=== PATIENT | male | born 1955 | race Caucasian/White ===

== ENCOUNTER 2021-12-05 15:13 | Inpatient (IN) | payer BC, OTHER ==
[~2021-12-05] VITALS: Ht 177.8 cm; Wt 81.0 kg
[~2021-12-05 15:13] MED LIST: ASPI-1009 PO; BENA40TA73 PO; CARV-50 PO; CLOP75TA34 PO; GEMF600T89 PO; OMEP-84 PO
[2021-12-05 16:20] LABS: BASOPHILS # (AUTO) 0.1 X10'3 (0-0.2); BASOPHILS % (AUTO) 0.6 % (0-1); EOSINOPHILS # (AUTO) 0.1 X10'3 (0-0.9); EOSINOPHILS % (AUTO) 1.7 % (0-6); HEMATOCRIT 33.6 % (42.0-52.0); LYMPHOCYTES % (AUTO) 11.6 % (21-51); MEAN CORPUSCULAR HEMOGLOBIN 29.9 PG (27.0-31.0); MEAN CORPUSCULAR HGB CONC 32.8 g/dL (33.0-36.5); MEAN CORPUSCULAR VOLUME 91.1 FL (78-98); MONOCYTES # (AUTO) 0.8 X10'3 (0-0.9); MONOCYTES % (AUTO) 9.5 % (2-12); NEUTROPHILS # (AUTO) 6.5 X10'3 (1.8-7.7); NEUTROPHILS % (AUTO) 76.6 % (42-75); PLATELET COUNT 294 X10'3 (140-440); RED BLOOD COUNT 3.69 X10'6 (4.70-6.10); RED CELL DISTRIBUTION WIDTH 13.7 % (11.5-14.5); WHITE BLOOD COUNT 8.4 X10'3 (4.5-11.0)
[2021-12-05 16:32] LABS: ALANINE AMINOTRANSFERASE 62 U/L (12-78); ALBUMIN 3.9 G/DL (3.4-5.0); ALBUMIN/GLOBULIN RATIO 1.1 (1.1-1.5); ALKALINE PHOSPHATASE 78 IU/L (46-116); ANION GAP 10 (8-16); ASPARTATE AMINO TRANSFERASE 26 U/L (10-37); BILIRUBIN,TOTAL 0.5 MG/DL (0.1-1.0); BLOOD UREA NITROGEN 30 MG/DL (7-18); BUN/CREATININE RATIO 20.5 (5.4-32.0); CALCIUM 9.1 MG/DL (8.5-10.1); CHLORIDE 105 MMOL/L (99-107); CREATININE 1.46 MG/DL (0.60-1.10); GLUCOSE 113 MG/DL (70-104); SODIUM 141 MMOL/L (135-145); TOTAL CARBON DIOXIDE 26.2 MMOL/L (24-32); TOTAL PROTEIN 7.5 G/DL (6.4-8.2); eGFR 48 ML/MIN
[2021-12-05] MEDS ORDERED: furosemide 10 MG/1 ML 10ml inj IV ONE (16:55)
[2021-12-05] MEDS ORDERED: ISOS30TA84 PO (17:58)
[2021-12-05] MEDS ORDERED: MEMA7CAP2 PO (17:58)
[2021-12-05] MEDS ORDERED: CLOP75TA15 PO (17:58)
[2021-12-05] MEDS ORDERED: CILO50TA PO (17:58)
[2021-12-05] MEDS ORDERED: RIVA1PAT9 TOP (17:58)
[2021-12-05] MEDS ORDERED: ESCI5TAB17 PO (17:58)
[2021-12-05] MEDS ORDERED: ATOR40TA71 PO (17:59)
[2021-12-05] MEDS ORDERED: METO-384 PO (17:59)
[2021-12-05] MEDS ORDERED: BUSP5TAB3 PO (17:59)
[2021-12-05] MEDS ORDERED: PERFLUTREN PROTEIN-A MICROSPHR (Optison) 0.22 MG/ML 3ML VIAL IV PRN (18:15)
[2021-12-05] MEDS ORDERED: ondansetron/PF 4mg/2ml inj IV PRN (18:15)
[2021-12-05] MEDS ORDERED: potassium CL 10mEq/100ml bag 100 ML IV PRN (18:15)
[2021-12-05] MEDS ORDERED: albuterol 2.5 MG/3 ML nebule NEB PRN (18:15)
[2021-12-05] MEDS ORDERED: magnesium 2GM in 50ml NS 50 ML IV PRN (18:15)
[2021-12-05] MEDS ORDERED: ipratropium/albuterol 3ml nebule NEB PRN (18:15)
[2021-12-05] MEDS ORDERED: mag hydrox/Alum hydrox/simeth 30ml oral suspension PO PRN (18:15)
[2021-12-05] MEDS ORDERED: magnesium 4gm in 100ml NS 100 ML IV PRN (18:15)
[2021-12-05] MEDS ORDERED: HYDROcodone/acetaminophen 5mg/325mg tablet PO PRN (18:15)
[2021-12-05] MEDS ORDERED: HYDROcodone/acetaminophen 10/325mg tab PO PRN (18:15)
[2021-12-05] MEDS ORDERED: acetaminophen 325mg tablet PO PRN ×2 (18:15)
[2021-12-05] MEDS ORDERED: potassium Cl 20 mEq SR tablet PO PRN ×2 (18:15)
[2021-12-05] MEDS: busPIRone 5mg tablet PO SCH (20:00)
[2021-12-05] MEDS: K and/or MAG REPLACEMENT MC SCH (20:00)
[2021-12-05] MEDS: docusate sod 100mg capsule PO SCH (20:00)
[2021-12-05] MEDS ORDERED: isosorbide mononitrate 30mg tab.SR.24H PO SCH (21:00)
[2021-12-05] MEDS: metoprolol succinate 25mg (24-HOUR) SR. Tablet PO SCH (22:10)
--- NOTE | 2021-12-05 23:33 | NUR ---
called ER for report. Nurse unavailable.
--- NOTE | 2021-12-05 23:39 | NUR ---
report received. Awaiting for patient
--- NOTE | 2021-12-05 23:39 | NUR ---
report to [facility] nurse
[2021-12-06 00:02] LABS: CLARITY,URINE CLEAR (Clear); COLOR,URINE YELLOW (Yellow); GLUCOSE, URINE NEGATIVE (Neg); KETONES,URINE NEGATIVE (Neg); LEUKOCYTE ESTERASE ,URINE NEGATIVE (Neg); NITRITES, URINE NEGATIVE (Neg); OCCULT BLOOD,URINE NEGATIVE (Neg); PROTEIN,URINE NEGATIVE (Neg); UROBILINOGEN,URINE 0.2 E.U/dL (0.2-1.0)
[2021-12-06 00:12] LABS: UA COLLECTION TYPE CLN CATCH MIDSTREAM
[2021-12-06 02:00] VITALS: BP 124/57
[2021-12-06 06:00] VITALS: BP 111/67
[2021-12-06] MEDS: metoprolol succinate 25mg (24-HOUR) SR. Tablet PO SCH (07:32)
[2021-12-06] MEDS: busPIRone 5mg tablet PO SCH (07:34)
[2021-12-06] MEDS: docusate sod 100mg capsule PO SCH (07:47)
[2021-12-06 07:48] LABS: BASOPHILS % (AUTO) 0.5 % (0-1); EOSINOPHILS # (AUTO) 0.3 X10'3 (0-0.9); EOSINOPHILS % (AUTO) 4.1 % (0-6); HEMOGLOBIN 10.3 g/dl (14.0-17.9); LYMPHOCYTES # (AUTO) 1.2 X10'3 (1.1-4.8); LYMPHOCYTES % (AUTO) 17.2 % (21-51); MEAN CORPUSCULAR HEMOGLOBIN 29.9 PG (27.0-31.0); MEAN CORPUSCULAR HGB CONC 33.1 g/dL (33.0-36.5); MEAN CORPUSCULAR VOLUME 90.5 FL (78-98); MEAN PLATELET VOLUME 8.2 FL (7.4-10.4); MONOCYTES # (AUTO) 0.8 X10'3 (0-0.9); MONOCYTES % (AUTO) 11.9 % (2-12); NEUTROPHILS # (AUTO) 4.7 X10'3 (1.8-7.7); NEUTROPHILS % (AUTO) 66.3 % (42-75); PLATELET COUNT 268 X10'3 (140-440); RED BLOOD COUNT 3.43 X10'6 (4.70-6.10); RED CELL DISTRIBUTION WIDTH 13.6 % (11.5-14.5)
[2021-12-06 07:53] LABS: ALANINE AMINOTRANSFERASE 51 U/L (12-78); ALBUMIN 3.4 G/DL (3.4-5.0); ALKALINE PHOSPHATASE 70 IU/L (46-116); ANION GAP 9 (8-16); ASPARTATE AMINO TRANSFERASE 21 U/L (10-37); BILIRUBIN,TOTAL 0.7 MG/DL (0.1-1.0); BLOOD UREA NITROGEN 31 MG/DL (7-18); BUN/CREATININE RATIO 21.7 (5.4-32.0); CALCIUM 8.9 MG/DL (8.5-10.1); CHLORIDE 107 MMOL/L (99-107); CREATININE 1.43 MG/DL (0.60-1.10); GLUCOSE 92 MG/DL (70-104); POTASSIUM 4.3 MMOL/L (3.5-5.1); SODIUM 142 MMOL/L (135-145); TOTAL CARBON DIOXIDE 26.3 MMOL/L (24-32); TOTAL PROTEIN 6.7 G/DL (6.4-8.2); eGFR 49 ML/MIN
[2021-12-06 07:56] LABS: MAGNESIUM 2.3 MG/DL (1.5-2.4)
[2021-12-06] MEDS: K and/or MAG REPLACEMENT MC SCH (08:00)
[2021-12-06] MEDS ORDERED: atorvastatin 20mg tablet PO SCH (08:00)
[2021-12-06] MEDS ORDERED: memantine 5mg tablet PO SCH (08:00)
[2021-12-06] MEDS ORDERED: clopidogrel 75mg tablet PO SCH (08:00)
[2021-12-06] MEDS ORDERED: cilostazol 50mg tablet PO SCH (08:00)
[2021-12-06] MEDS ORDERED: ESCITALOPRAM OXALATE 5 MG TABLET PO SCH (08:00)
[2021-12-06] MEDS ORDERED: furosemide 40mg/4ml inj IV SCH (08:00)
--- NOTE | 2021-12-06 11:29 | NUR ---
Discussed traveling with oxygen via automobile, bus train, cruise ships and air lines.Talked about portable oxygen concentrators and the specific needs of each node of travel for using oxygen. Discussed pre planning with the doctor and oxygen supplier as pace to a successful trip. Addendum: 12/06/21 at 1130 by Sara Mccartney RN did not mean to save on this patient. wrong note
--- NOTE | 2021-12-06 11:31 | NUR ---
walking pulse ox performed on patient Resting pulse ox on room air 95% walking pulse ox on room air 96% Dr. Martinez made aware.
[2021-12-06] MEDS ORDERED: LISI2.5T14 PO (13:36)
[2021-12-06] MEDS ORDERED: FURO40TA4 PO (13:36)
--- NOTE | 2021-12-06 14:40 | NUR ---
Pt. received discharge instructions with no further questions; Pt. tele box cleaned and returned; Pt. IV removed with catheter intact; All meds were returned to patient from pharmacy; Pt. stable for discharge per Dr. Martinez; Pt left via ambulatory downstairs to [facility] awaiting ride with family Sara Click [facility]
== END 2021-12-06 14:44 | disposition home or self-care (01) | DRG 292 ==
LOC: ER 15:16 → ED HOLD 18:24 → MERGE 18:24 → EDBEDREQ 23:11 → PCU 3S 23:38
PROVIDERS: ADMIT Family Medicine; ATTEND Family Medicine
DX: I50.23 Acute on chronic systolic (congestive) heart failure (principal); I48.20 Chronic atrial fibrillation, unspecified; E78.5 Hyperlipidemia, unspecified; G20 Parkinson's disease; F02.80 Dementia in other diseases classified elsewhere, unspecified severity, without behavioral disturbance, psychotic disturbance, mood disturbance, and anxiety; N19 Unspecified kidney failure; Z66 Do not resuscitate; Z20.822 Contact with and (suspected) exposure to COVID-19; Z87.891 Personal history of nicotine dependence; Z79.899 Other long term (current) drug therapy; Z95.0 Presence of cardiac pacemaker; Z82.0 Family history of epilepsy and other diseases of the nervous system
CPT/HCPCS: 36415; 71045; 80053; 81003; 83735; 83880; 84484; 85025; 85610; 86885; 86900; 86901; 87081; 87635; 93005; 93306; 94760; 96374; 99285; C9803; G0378; J1940

== ENCOUNTER 2022-08-18 19:53 | Inpatient (IN) | payer BC ==
[~2022-08-18] VITALS: Ht 177.8 cm; Wt 85.0 kg
[~2022-08-18 19:53] MED LIST changes: +ATOR40TA71 PO; +BUSP5TAB3 PO; +CILO50TA PO; +CLOP75TA15 PO; +ESCI5TAB17 PO; +FURO40TA4 PO; +ISOS30TA84 PO; +LISI2.5T14 PO; +MEMA7CAP2 PO; +METO-384 PO; +RIVA1PAT9 TOP
[2022-08-18 20:55] LABS: BASOPHILS # (AUTO) 0.1 X10'3 (0-0.2); BASOPHILS % (AUTO) 0.8 % (0-1); EOSINOPHILS # (AUTO) 0.1 X10'3 (0-0.9); EOSINOPHILS % (AUTO) 0.8 % (0-6); HEMATOCRIT 31.6 % (42.0-52.0); HEMOGLOBIN 9.9 g/dl (14.0-17.9); LYMPHOCYTES # (AUTO) 0.7 X10'3 (1.1-4.8); LYMPHOCYTES % (AUTO) 10.4 % (21-51); MEAN CORPUSCULAR HEMOGLOBIN 24.2 PG (27.0-31.0); MEAN CORPUSCULAR HGB CONC 31.2 g/dL (33.0-36.5); MEAN CORPUSCULAR VOLUME 77.4 FL (78-98); MEAN PLATELET VOLUME 7.8 FL (7.4-10.4); MONOCYTES # (AUTO) 0.9 X10'3 (0-0.9); MONOCYTES % (AUTO) 12.6 % (2-12); NEUTROPHILS # (AUTO) 5.2 X10'3 (1.8-7.7); NEUTROPHILS % (AUTO) 75.4 % (42-75); PLATELET COUNT 244 X10'3 (140-440); RED BLOOD COUNT 4.09 X10'6 (4.70-6.10); RED CELL DISTRIBUTION WIDTH 18.8 % (11.5-14.5); WHITE BLOOD COUNT 6.9 X10'3 (4.5-11.0)
[2022-08-18 21:08] LABS: ALANINE AMINOTRANSFERASE 24 U/L (12-78); ALBUMIN 3.1 G/DL (3.4-5.0); ALBUMIN/GLOBULIN RATIO 0.8 (1.1-1.5); ALKALINE PHOSPHATASE 122 IU/L (46-116); ANION GAP 10 (8-16); ASPARTATE AMINO TRANSFERASE 27 U/L (10-37); BILIRUBIN,TOTAL 0.3 MG/DL (0.1-1.0); BLOOD UREA NITROGEN 48 MG/DL (7-18); BUN/CREATININE RATIO 26.8 (5.4-32.0); CALCIUM 8.5 MG/DL (8.5-10.1); CHLORIDE 104 MMOL/L (99-107); CREATININE 1.79 MG/DL (0.60-1.10); GLUCOSE 98 MG/DL (70-104); SODIUM 142 MMOL/L (135-145); TOTAL CARBON DIOXIDE 28.2 MMOL/L (24-32); TOTAL PROTEIN 6.8 G/DL (6.4-8.2); eGFR 38 ML/MIN
[2022-08-18 21:22] LABS: POTASSIUM 4.6 MMOL/L (3.5-5.1)
[2022-08-18 21:32] LABS: ANISOCYTOSIS 2+; MICROCYTOSIS 1+; PLATELET ESTIMATE NORMAL; POLYCHROMASIA FEW
[2022-08-18 21:33] LABS: ELLIPTOCYTES FEW
[2022-08-18 21:34] LABS: SCHISTOCYTES FEW
[2022-08-18] MEDS ORDERED: furosemide 10 MG/1 ML 10ml inj IV ONE (22:55)
[2022-08-18] MEDS ORDERED: magnesium Cl slow-release 64mg tablet PO PRN (23:50)
[2022-08-18] MEDS ORDERED: furosemide 10 MG/1 ML 10ml inj IM ONE (23:50)
[2022-08-18] MEDS ORDERED: magnesium 2GM in 50ml NS 50 ML IV PRN (23:50)
[2022-08-18] MEDS ORDERED: mag hydrox/Alum hydrox/simeth 30ml oral suspension PO PRN (23:50)
[2022-08-18] MEDS ORDERED: acetaminophen 325mg tablet PO PRN (23:50)
[2022-08-18] MEDS ORDERED: magnesium hydroxide 30ml (MOM) UD suspension PO PRN (23:50)
[2022-08-18] MEDS ORDERED: potassium CL 10mEq/100ml bag 100 ML IV PRN (23:50)
[2022-08-18] MEDS ORDERED: magnesium 4gm in 100ml NS 100 ML IV PRN (23:50)
[2022-08-18] MEDS ORDERED: ondansetron/PF 4mg/2ml inj IV PRN (23:50)
[2022-08-18] MEDS ORDERED: POTASSIUM BICARB 20meq eff tab 20 MEQ TABLET.EFF PO PRN ×2 (23:50)
[2022-08-19 00:10] LABS: MAGNESIUM 2.4 MG/DL (1.5-2.4)
[2022-08-19] MEDS ORDERED: haloperidol lactate 5mg/ml inj IM ONE (03:15)
[2022-08-19 05:50] VITALS: BP 137/80
[2022-08-19 06:33] LABS: BASOPHILS # (AUTO) 0.1 X10'3 (0-0.2); BASOPHILS % (AUTO) 0.8 % (0-1); EOSINOPHILS # (AUTO) 0.1 X10'3 (0-0.9); EOSINOPHILS % (AUTO) 0.7 % (0-6); HEMATOCRIT 32.2 % (42.0-52.0); HEMOGLOBIN 9.9 g/dl (14.0-17.9); LYMPHOCYTES # (AUTO) 0.5 X10'3 (1.1-4.8); LYMPHOCYTES % (AUTO) 7.5 % (21-51); MEAN CORPUSCULAR HEMOGLOBIN 24.2 PG (27.0-31.0); MEAN CORPUSCULAR HGB CONC 30.8 g/dL (33.0-36.5); MEAN CORPUSCULAR VOLUME 78.6 FL (78-98); MEAN PLATELET VOLUME 8.1 FL (7.4-10.4); MONOCYTES % (AUTO) 13.9 % (2-12); NEUTROPHILS # (AUTO) 5.5 X10'3 (1.8-7.7); NEUTROPHILS % (AUTO) 77.1 % (42-75); PLATELET COUNT 227 X10'3 (140-440); RED BLOOD COUNT 4.09 X10'6 (4.70-6.10); RED CELL DISTRIBUTION WIDTH 19.1 % (11.5-14.5); WHITE BLOOD COUNT 7.1 X10'3 (4.5-11.0)
[2022-08-19 06:54] LABS: ALANINE AMINOTRANSFERASE 20 U/L (12-78); ALBUMIN 3.4 G/DL (3.4-5.0); ALBUMIN/GLOBULIN RATIO 0.9 (1.1-1.5); ALKALINE PHOSPHATASE 118 IU/L (46-116); ANION GAP 13 (8-16); ASPARTATE AMINO TRANSFERASE 26 U/L (10-37); BILIRUBIN,TOTAL 0.5 MG/DL (0.1-1.0); BLOOD UREA NITROGEN 54 MG/DL (7-18); BUN/CREATININE RATIO 30.5 (5.4-32.0); CALCIUM 8.7 MG/DL (8.5-10.1); CHLORIDE 109 MMOL/L (99-107); CREATININE 1.77 MG/DL (0.60-1.10); GLUCOSE 95 MG/DL (70-104); MAGNESIUM 2.5 MG/DL (1.5-2.4); POTASSIUM 4.4 MMOL/L (3.5-5.1); SODIUM 144 MMOL/L (135-145); TOTAL CARBON DIOXIDE 22.5 MMOL/L (24-32); TOTAL PROTEIN 7.1 G/DL (6.4-8.2); eGFR 38 ML/MIN
[2022-08-19 07:00] VITALS: BP 141/75
[2022-08-19] MEDS ORDERED: furosemide 20 MG/2 ML vial IV SCH (08:00)
[2022-08-19] MEDS ORDERED: lisinopril 2.5mg tablet PO SCH (08:00)
[2022-08-19] MEDS: carvedilol 6.25mg tablet PO SCH ×2 (09:23→19:35)
[2022-08-19] MEDS: docusate sod 100mg capsule PO SCH ×2 (09:23→19:36)
[2022-08-19] MEDS: heparin, porcine 5000 units/ml vial SQ SCH ×2 (09:25→19:34)
[2022-08-19 11:00] VITALS: BP 132/80
[2022-08-19] MEDS ORDERED: MELA10TA PO (16:10)
[2022-08-19] MEDS ORDERED: TRAZ-251 PO (16:10)
[2022-08-19] MEDS ORDERED: LISI2.5T14 PO (16:10)
[2022-08-19] MEDS ORDERED: ALLO100T PO (16:10)
[2022-08-19] MEDS ORDERED: FURO40TA4 PO (16:10)
[2022-08-19] MEDS: RIVASTIGMINE 13.3 MG/24 HR TP SCH (18:41)
[2022-08-19 19:00] VITALS: BP 111/65
[2022-08-19] MEDS: metoprolol succinate 25mg (24-HOUR) SR. Tablet PO SCH (19:35)
[2022-08-19] MEDS: furosemide 40mg tablet PO SCH (19:35)
[2022-08-19] MEDS: allopurinol 100mg tablet PO SCH (19:36)
[2022-08-19] MEDS: K and/or MAG REPLACEMENT MC SCH (20:00)
[2022-08-19] MEDS ORDERED: Melatonin 3mg tablet PO SCH (21:00)
[2022-08-19] MEDS ORDERED: traZODone 50mg tablet PO SCH (21:00)
[2022-08-19 23:23] VITALS: BP 104/53
[2022-08-20 07:09] VITALS: BP 118/60
[2022-08-20] MEDS ORDERED: memantine hcl 7mg SR capsule (24-hr) PO SCH (08:00)
[2022-08-20] MEDS ORDERED: ESCITALOPRAM OXALATE 5 MG TABLET PO SCH (08:00)
[2022-08-20] MEDS: K and/or MAG REPLACEMENT MC SCH (08:00)
[2022-08-20] MEDS ORDERED: isosorbide mononitrate 30mg tab.SR.24H PO SCH (08:00)
[2022-08-20] MEDS ORDERED: cilostazol 50mg tablet PO SCH (08:00)
[2022-08-20] MEDS ORDERED: lisinopril 2.5mg tablet PO SCH (08:00)
[2022-08-20] MEDS: carvedilol 6.25mg tablet PO SCH (08:18)
[2022-08-20] MEDS: furosemide 40mg tablet PO SCH (08:20)
[2022-08-20] MEDS: docusate sod 100mg capsule PO SCH (08:21)
[2022-08-20] MEDS: allopurinol 100mg tablet PO SCH (08:22)
[2022-08-20] MEDS: metoprolol succinate 25mg (24-HOUR) SR. Tablet PO SCH (08:23)
[2022-08-20] MEDS: heparin, porcine 5000 units/ml vial SQ SCH (08:25)
[2022-08-20] MEDS ORDERED: furosemide 40mg/4ml inj IV ONE (09:09)
[2022-08-20 09:24] VITALS: BP 109/64
[2022-08-20] MEDS: RIVASTIGMINE 13.3 MG/24 HR TP SCH (10:50)
== END 2022-08-20 11:16 | disposition home or self-care (01) | DRG 291 ==
LOC: ER 19:54 → ED HOLD 23:52 → PCU 3S 08-19 05:20
PROVIDERS: ADMIT Internal Medicine; ATTEND Family Medicine
DX: I13.0 Hypertensive heart and chronic kidney disease with heart failure and stage 1 through stage 4 chronic kidney disease, or unspecified chronic kidney disease (principal); I50.23 Acute on chronic systolic (congestive) heart failure; G93.40 Encephalopathy, unspecified; N17.9 Acute kidney failure, unspecified; N18.9 Chronic kidney disease, unspecified; I42.0 Dilated cardiomyopathy; Z66 Do not resuscitate; I48.91 Unspecified atrial fibrillation; G31.83 Neurocognitive disorder with Lewy bodies; F02.80 Dementia in other diseases classified elsewhere, unspecified severity, without behavioral disturbance, psychotic disturbance, mood disturbance, and anxiety; Z79.899 Other long term (current) drug therapy; Z95.810 Presence of automatic (implantable) cardiac defibrillator
CPT/HCPCS: 36415; 71045; 80053; 83735; 83880; 85008; 85025; 87081; 99285; G0378; J1630; J1644; J1940